=== PATIENT | male | born 1960 | race Two or more races ===

== ENCOUNTER 2018-04-19 10:46 | Outpatient (CLI) | payer OTHER | END 2018-04-19 16:20 | disposition home or self-care (01) | LOC: RAD 501 10:46 | DX: M25.511 Pain in right shoulder (principal); M25.512 Pain in left shoulder ==

== ENCOUNTER 2025-10-16 06:41 | Inpatient (IN) | payer OTHER ==
[~2025-10-16] VITALS: Ht 30.5 cm; Wt 128.8 kg
[2025-10-16 07:21] LABS: BASO % 0.7 % (0.1-1.2); EOS # 0.22 (0.04-0.54); EOS % 2.5 % (0.7-7.0); LYMPH # 3.05 (1.18-3.74); LYMPH % 35.1 % (19.3-53.1); MEAN PLATELET VOLUME 9.70 fl (9.4-12.4); MONO # 0.91 (0.24-0.82); MONO % 10.5 % (4.7-12.5); NEUT # 4.39 (1.56-6.13); NEUT % 50.6 % (34.0-71.1); RED CELL DISTRIBUTION WIDTH 13.1 % (11.6-14.4)
[2025-10-16 07:43] LABS: URINE APPEARANCE Clear; URINE BILIRRUBIN Negative (NEGATIVE); URINE BLOOD Negative; URINE COLOR Yellow; URINE GLUCOSE Negative (NEGATIVE); URINE KETONE Negative (NEGATIVE); URINE LEUKOCYTE Negative; URINE NITRATE Negative; URINE PROTEIN Negative (NEGATIVE); URINE UROBILINOGEN 0.2 E.U./dl
[2025-10-16 07:44] LABS: URINE BACTERIA 8.3 uL (0.0-1933); URINE EPITHELIAL CELLS 3.2 uL (0.0-38.8); URINE WBC 2.2 uL (0.0-23.2)
[2025-10-16 07:47] LABS: URINE CAST 0.14 uL (0.0-1.40); URINE RBC 0.8 uL (0.0-20.8)
[2025-10-16 07:49] LABS: INR 1.1
[2025-10-16 08:04] LABS: ALT/SGPT 32.0 U/L (12-78); AST/SGOT 25.0 U/L (15-37); BILIRUBIN TOTAL 0.5 mg/dL (0.3-1.2); BUN CREA RATIO 16.0 (7.0-25.0); CREATININE SERUM 1.09 mg/dL (0.70-1.30); GFR 68.11; GLOBULINA 2.7 G/DL (2.4-3.5); GLUCOSE FASTING 104.0 mg/dL (65-100); OSMOLALITY SERUM 287.0 MOSM/KG (275-295)
[2025-10-16] MEDS ORDERED: ECOTRIN81 MG PO (09:58)
[2025-10-16] MEDS ORDERED: ATACAND32 MG PO (09:59)
[2025-10-16] MEDS ORDERED: AMLODIPINE-OLM1 EAC2 PO (09:59)
[2025-10-16] MEDS ORDERED: MEGA 3-6-9 SO1233 MG (09:59)
[2025-10-16] MEDS ORDERED: TOPROL XL25 M1 PO (09:59)
[2025-10-29] MEDS ORDERED: CEFAZOLIN SODIUM 1,000 MG VIAL ONE ×2 (08:16→16:03)
[2025-10-29] MEDS ORDERED: TRANEXAMIC ACID 100MG/1ML (1000MG) AMPUL ONE (08:17)
[2025-10-29] MEDS ORDERED: ONDANSETRON HCL 2 MG/ML VIAL IV PRN (10:15)
[2025-10-29] MEDS ORDERED: BUPIVACAINE HCL/MPF 0.5% 30ML VIAL ONE (10:22)
[2025-10-29] MEDS ORDERED: KETOROLAC TROMETHAMINE 60 MG VIAL IM ONE (10:22)
[2025-10-29] MEDS ORDERED: LIDOCAINE HCL 1%/EPINEPHRINE 20ML VIAL IJ ONE (10:22)
[2025-10-29] MEDS ORDERED: ISOPROPYL ALCOHOL 30 ML OUNCE TOP ONE (10:22)
[2025-10-29] MEDS ORDERED: MORPHINE SULFATE 4 MG/ML VIAL IV SCH (12:00)
[2025-10-29] MEDS ORDERED: CEFAZOLIN SODIUM 1,000 MG VIAL IV SCH (12:00)
[2025-10-29] MEDS ORDERED: TRAMADOL HCL 50 MG TABLET PO PRN (12:00)
[2025-10-29] MEDS ORDERED: ORPHENADRINE CITRATE 100 MG TABLET PO ONE (17:10)
[2025-10-29] MEDS ORDERED: GABAPENTIN 300 MG CAPSULE PO ONE (17:10)
[2025-10-29] MEDS ORDERED: GABAPENTIN 100 MG CAPSULE PO ONE (17:11)
[2025-10-29] MEDS ORDERED: GABAPENTIN 100 MG CAPSULE PO SCH (21:00)
[2025-10-29] MEDS ORDERED: ORPHENADRINE CITRATE 100 MG TABLET PO SCH (21:00)
[2025-10-29 22:30] VITALS: BP 131/82; O2SAT 97
[2025-10-30 01:14] VITALS: BP 144/82; O2SAT 97
[2025-10-30 07:46] LABS: BASO % 0.2 % (0.1-1.2); EOS # 0.03 (0.04-0.54); EOS % 0.2 % (0.7-7.0); LYMPH # 1.25 (1.18-3.74); LYMPH % 10.3 % (19.3-53.1); MEAN PLATELET VOLUME 10.50 fl (9.4-12.4); MONO # 1.26 (0.24-0.82); MONO % 10.4 % (4.7-12.5); NEUT # 9.48 (1.56-6.13); NEUT % 78.5 % (34.0-71.1); RED CELL DISTRIBUTION WIDTH 12.8 % (11.6-14.4)
[2025-10-30 08:00] VITALS: BP 141/76; O2SAT 99
[2025-10-30] MEDS ORDERED: RIVAROXABAN 10 MG TAB PO SCH (09:00)
[2025-10-30] MEDS ORDERED: ENALAPRILAT DIHYDRATE 1.25 MG/ML VIAL IV PRN (12:45)
[2025-10-30 16:00] VITALS: BP 160/79; O2SAT 98
[2025-10-30] MEDS ORDERED: CANDESARTAN CILEXETIL 32 MG TABLET PO SCH (17:00)
[2025-10-30] MEDS ORDERED: IRON FUM,PS/FOLIC ACID/VITC/B3 1 CAP CAPSULE PO SCH (17:00)
[2025-10-30] MEDS ORDERED: AMLODIPINE BESYLATE 5 MG TABLET PO SCH (17:00)
[2025-10-30] MEDS ORDERED: METOPROLOL SUCCINATE 25 MG TAB.SR.24H PO SCH (17:00)
[2025-10-30] MEDS ORDERED: Cyanocobalamin/Mecobalamin 1 TAB.SL SL SCH (17:00)
[2025-10-31 01:17] VITALS: BP 137/76; O2SAT 97
[2025-10-31 07:46] LABS: BASO % 0.2 % (0.1-1.2); EOS # 0.00 (0.04-0.54); EOS % 0.0 % (0.7-7.0); LYMPH # 1.81 (1.18-3.74); LYMPH % 10.7 % (19.3-53.1); MEAN PLATELET VOLUME 10.10 fl (9.4-12.4); MONO # 1.93 (0.24-0.82); MONO % 11.5 % (4.7-12.5); NEUT # 12.93 (1.56-6.13); NEUT % 76.8 % (34.0-71.1); RED CELL DISTRIBUTION WIDTH 12.1 % (11.6-14.4)
[2025-10-31 08:00] VITALS: BP 168/79; O2SAT 98
[2025-10-31 09:59] VITALS: BP 137/75; O2SAT 96
[2025-10-31] MEDS ORDERED: GABAPENTIN100 MG PO (11:05)
[2025-10-31] MEDS ORDERED: NORFLEX100MG PO (11:05)
[2025-10-31] MEDS ORDERED: TRAMADOL HCL50 MG PO (11:06)
[2025-10-31] MEDS ORDERED: XARELTO10 MG PO (11:06)
[2025-10-31] MEDS ORDERED: TRAMADOL HCL 50 MG TABLET PO PRN (15:15)
== END 2025-10-31 17:19 | DRG 470 ==
LOC: SURH 10-29 07:00 → O/R 10-29 08:00 → SURH 10-29 08:00
PROVIDERS: ADMIT Orthopaedic Surgery; ATTEND Orthopaedic Surgery
PROC: 0QUD0JZ Supplement Right Patella with Synthetic Substitute, Open Approach (ICD-10-PCS; 2025-10-29)
PROC: 0SRC0JZ Replacement of Right Knee Joint with Synthetic Substitute, Open Approach (ICD-10-PCS; principal; 2025-10-29 07:00)
DX: M17.11 Unilateral primary osteoarthritis, right knee (principal); D62 Acute posthemorrhagic anemia; I10 Essential (primary) hypertension; I49.9 Cardiac arrhythmia, unspecified; Z96.653 Presence of artificial knee joint, bilateral